=== PATIENT | female | born 1995 | race African-American/Black ===

== ENCOUNTER 2021-11-27 12:31 | Outpatient (REF) | payer OTHER, SELFPAY ==
[2021-11-27 13:01] LABS: COVID-19 Test Positive (Negative); IDNOW Serial# 9DB6401D
== END 2021-11-27 12:32 | disposition home or self-care (01) ==
LOC: HO.LAB 12:31
PROVIDERS: Visit Provider Internal Medicine
DX: Z20.822 Contact with and (suspected) exposure to COVID-19 (principal)
CPT/HCPCS: 87635; C9803